=== PATIENT | female | born 1975 | race Caucasian/White ===

== ENCOUNTER 2021-01-30 14:13 | Emergency (ER) | payer OTHER ==
[~2021-01-30 14:13] MED LIST: BENADRYL 50MG C50 MG PO; CYCLOBENZAPRINE10 MG PO; FLAGYL500 MG PO; IBUPROFEN800 MG PO; PEPCID40 MG PO; PREDNISONE 50 M50 MG PO; PROVERA 10 MG T10 MG PO; TORADOL 10 MG T10 MG PO; ZOFRAN ODT 4 MG4 MG PO; ZOFRAN4 MG PO
[2021-01-30 18:11] LABS: HEMOGLOBIN 14.8 gm/dl (12.3-15.3); RED BLOOD COUNT 5.57 M/UL (4.00-5.10); WHITE BLOOD COUNT 11.5 K/UL (4.5-11.0)
[2021-01-30 18:43] LABS: BUN/CREATININE RATIO 16 (0-10)
== END 2021-01-30 20:30 | disposition home or self-care (01) ==
LOC: ER1 14:13
PROVIDERS: Emergency Medicine
DX: M54.2 Cervicalgia (principal); M54.50 Low back pain, unspecified; F17.200 Nicotine dependence, unspecified, uncomplicated
CPT/HCPCS: 70450; 71045; 71260; 72125; 72131; 80053; 81001; 85025; 99283; Q9967

== ENCOUNTER 2021-10-26 17:19 | Emergency (ER) | payer OTHER ==
[2021-10-26 18:26] LABS: RED BLOOD COUNT 5.42 M/UL (4.00-5.10); WHITE BLOOD COUNT 6.2 K/UL (4.5-11.0)
[2021-10-26 18:53] LABS: BUN/CREATININE RATIO 14 (0-10)
== END 2021-10-26 19:43 | disposition home or self-care (01) ==
LOC: ER1 17:19
PROVIDERS: Physician Assistant
DX: U07.1 COVID-19 (principal); F17.210 Nicotine dependence, cigarettes, uncomplicated
CPT/HCPCS: 80053; 85025; 96374; 96375; 99283; J1885; J2405; U0002